=== PATIENT | female | born 1940 | race Caucasian/White ===

== ENCOUNTER 2021-03-17 13:24 | Emergency (ER) | payer OTHER ==
[~2021-03-17] VITALS: Ht 157.5 cm; Wt 47.6 kg
[2021-03-17 13:57] LABS: URINE BILIRUBIN NEGATIVE (Negative); URINE BLOOD NEGATIVE (Negative); URINE CLARITY CLEAR; URINE COLOR YELLOW; URINE GLUCOSE-RANDOM* NEGATIVE (Negative); URINE KETONES NEGATIVE (Negative); URINE NITRITE-REFLEX NEGATIVE (Negative); URINE PROTEIN (DIPSTICK) NEGATIVE (Negative); URINE UROBILINOGEN 0.2 E.U./dl (0.2-1.0)
[2021-03-17 13:59] LABS: URINE LEUKOCYTES-REFLEX 1+ (Negative)
[2021-03-17 14:11] LABS: ABSOLUTE NEUTROPHILS 3.6 thou/uL (1.4-8.2); BASOPHILS 0.5 % (0.0-2.0); EOSINOPHILS 1.7 % (0.0-3.0); HEMATOCRIT 39.4 % (37.0-47.0); LYMPHOCYTES 24.3 % (24.0-44.0); MCH 31.8 pg (26.0-34.0); MCHC 32.9 g/dL (28.0-37.0); MCV 96.4 fL (80.0-100.0); MONOCYTES 11.1 % (1.0-8.0); PLATELET COUNT 202 thou/uL (150-400); POLYS 62.4 % (36.0-66.0); RBC 4.09 mil/uL (4.20-5.00); RDW 12.9 % (10.5-14.5); WBC 5.8 thou/uL (4.0-11.0)
[2021-03-17 14:11] LABS: BACTERIA-REFLEX 1-9 Few /HPF (None Seen); CASTS None Seen /LPF (None Seen); CRYSTALS None Seen /LPF (None Seen); SQUAMOUS 4-10 Moderate /LPF (0-3); URINE RBC 1-2 Rare /HPF (NONE SEEN)
[2021-03-17 14:18] LABS: CREATININE 1.2 mg/dL (0.6-1.0); POTASSIUM 4.3 mmol/L (3.5-5.1)
[2021-03-17 14:25] LABS: ALBUMIN 3.7 g/dL (3.4-5.0); TOTAL BILIRUBIN 0.4 mg/dL (0.2-1.0); TOTAL PROTEIN 6.6 g/dL (6.4-8.2)
[2021-03-17 15:09] VITALS: BP 177/83
--- NOTE | 2021-03-17 15:10 | EKG ---
[place] [address] [employer] [place] [address] ELECTROCARDIOGRAM REPORT Name: HENRYJOSE G YENNI Room #: REG [facility]#: [id number] Admission: 03/17/21 Attend Phys: Discharge: Date of : 44 Report #: [id number] [facility] ED Test Date: 2021-03-17 Test Time: 13:42:06 Pat Name: JOSE G FIGUEROA Department: Room: Gender: F Asset Availability Leader: : 1940 Requested By: Eduardo Marie Order Number: [id number] MD: Chico Alarcon Measurements Intervals [place] Rate: 70 P: 70 NH: 193 QRS: -9 QRSD: 97 T: 79 QT: 379 QTc: 409 Interpretive Statements Sinus rhythm Ventricular bigeminy Left atrial enlargement Anterior infarct, old No previous ECG available for comparison Electronically Signed On 03-17-2021 15:10:10 CDT by Chico Alarcon [email or web address] <ELECTRONICALLY SIGNED> By: Chico Alarcon MD, [facility] 03/17/21 1510 1342 1342 Chico Alarcon MD, FACC /EPI
[2021-03-17] MEDS ORDERED: LIPITOR10 MG PO (15:48)
[2021-03-17] MEDS ORDERED: ACYCLOVIR5 GM TOP (15:48)
[2021-03-17] MEDS ORDERED: COREG6.25 MG PO (15:49)
[2021-03-17] MEDS ORDERED: LEXAPRO20 MG PO (15:49)
[2021-03-17] MEDS ORDERED: FAMOTIDINE 40 M40 M1 PO (15:50)
[2021-03-17] MEDS ORDERED: TRAZODONE HCL50 MG PO (15:51)
[2021-03-17] MEDS ORDERED: TRETINOIN TOP (15:54)
[2021-03-17] MEDS ORDERED: DESVENLAFAXINE25 MG PO (15:55)
== END 2021-03-17 15:09 ==
LOC: ER 13:24
PROVIDERS: Emergency Medicine
DX: R45.851 Suicidal ideations (principal); Z20.822 Contact with and (suspected) exposure to COVID-19; N39.0 Urinary tract infection, site not specified; F41.9 Anxiety disorder, unspecified; F32.9 Major depressive disorder, single episode, unspecified; Z79.1 Long term (current) use of non-steroidal anti-inflammatories (NSAID); Z79.899 Other long term (current) drug therapy; Z88.2 Allergy status to sulfonamides

== ENCOUNTER 2021-03-17 15:24 | Inpatient (IN) | payer OTHER ==
[~2021-03-17] VITALS: Ht 157.5 cm; Wt 46.7 kg
[2021-03-17] MEDS ORDERED: ACYCLOVIR5 GM TOP (15:48)
[2021-03-17] MEDS ORDERED: LIPITOR10 MG PO (15:48)
[2021-03-17] MEDS ORDERED: LEXAPRO20 MG PO (15:49)
[2021-03-17] MEDS ORDERED: COREG6.25 MG PO (15:49)
[2021-03-17] MEDS ORDERED: FAMOTIDINE 40 M40 M1 PO (15:50)
[2021-03-17] MEDS ORDERED: TRAZODONE HCL50 MG PO (15:51)
[2021-03-17] MEDS ORDERED: TRETINOIN TOP (15:54)
[2021-03-17] MEDS ORDERED: DESVENLAFAXINE25 MG PO (15:55)
[2021-03-17 17:15] LABS: CHOLESTEROL 173 mg/dL (<200); HDL CHOLESTEROL 82 mg/dL (>40); LDL CHOLESTEROL 73 mg/dL (<100); TC:HDL 2.1 Ratio (Not establshd); TRIGLYCERIDE 92 mg/dL (<150); VLDL 18 mg/dL (<40)
[2021-03-17 17:17] LABS: SERUM ASSESSMENT Clear
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
[2021-03-17 18:35] LABS: FOLIC ACID 39.4 ng/mL (8.6-58.9)
[2021-03-17 20:07] VITALS: BP 132/62
[2021-03-17 20:08] VITALS: BP 132/62
--- NOTE | 2021-03-17 22:58 | NUR ---
UPON ARIVAL TO THE UNIT PT IS NOT HAPPY. STATES THAT SHE HAS BEEN ON THE FLOOR SINCE 1500 AND HAS NOT TALKED TO ANYONE OTHER THAN TO BE SHOWN TO HER ROOM. PATIENT STATES THAT SHE HAS NEVER BEEN IN A FACILITY LIKE THIS IS HERE FOR DEPRESSION AND ANXIETY ONLY. SHE WAS INFORMED BY HER OUTPATIENT THERAPIST THAT SHE WOULD BE SEEN AND ASSESSED BY DR SAAMYOA AFTER BEING ADMITTED. STATES THAT IS THE REASON WHY SHE CAME TODAY OPPOSED TO LAST WEDNESDAY. SHE STATES THAT INITIALLY SHE WAS TALKING ABOUT COMING LAST WEDNESDAY BUT THE DECISION WAS MADE BETWEEN HER PRIMARY AND SUPPOSEDLY DR SAMAYOA TO WAIT UNTIL TODAY. PATIENT STATES THAT SHE DOES NOT WANT TO HURT HERSELF BUT HAS THOUGHT ABOUT SUICIDE OVER THE PAST FEW YEARS DUE TO CLOSE LOSSES IN HER LIFE. SAYS THAT SHE ADMITTED THAT SHE WANTED TO GO TO SLEEP AND NOT WAKE UP. SHE DOES NOT FEEL THAT THIS ENVIRONMENT IS WHAT SHE NEEDS. SHE BELIEVED THAT SHE WAS COMING FOR COUNSELING AND SOME MEDICATION CHANGES. SHE DENIES HAVING ANY HX OF PSYCHOSIS. PATIENT IS AA0X4. SHE IS CALM COOPERATIVE AND COMPLIANT. SHE FOLLOWS ALL COMMANDS. IS DRESSED APPROPRIATE AND MAKE GOOD EYE CONTACT. SPOKE WITH HER AND HER TO EXPLAIN SOME OF THE UNIT POLICIES FOR SAFETY. WILL CONTINUE TO MONITOR FOR CHANGES IN PATIENT STATUS.
[2021-03-18 10:08] VITALS: BP 140/95
[2021-03-18 10:25] VITALS: BP 140/95
--- NOTE | 2021-03-18 12:05 | NUR ---
Gama WHITE DEFERRED AT THIS TIME AFTER DISCUSSION W/NURSING STAFF. PT IS UP AD BELLA AROUND THE [facility] UNIT AND OBSERVED FROM A DISTANCES AMBULATING W/A STEADY RECIPROCAL GAIT. PT AGREES SHE IS MOBILIZING AT BASELINE AND THUS DOES NOT NECESSITATE SKILLED THERAPY SERVICES IN THE ACUTE CARE SETTING. REQUEST NEW ORDERS IF PT DEMONSTRATES A SUDDEN CHANGE IN MOBILITY.
--- NOTE | 2021-03-18 12:30 | NUR ---
1230 RESUMMED CARE FROM OVERNIGHT SHIFT THIS AM, PATIENT ALERT ORIENTED TIMES 4. PATIENTS AFFECT FLAT SHE FEELS SHE SHOULD NOT BE HERE; PATIENT DENIES SI/HI/AH/VH AT PRESENT. PATIENT STATES HAS SOME DEPRESSION RATES IT AT A 6 NO ANXIETY. PATIENT STATES SHE LOST HER SON LAST YEAR AND IS SICK AND THIS IS OVERWHELMING FOR HER. PATIENTS ABDOMEN SOFT BOWEL SOUNDS PRESENT PATIENTS LUNGS CLEAR. PATIENT CALM QUIET WILL CONINUE TO MONITOR PATIENT FOR SAFETY AND BEHAVIORS.
[2021-03-18 20:12] VITALS: BP 142/64
--- NOTE | 2021-03-19 03:50 | NUR ---
PATIENT RESTING IN HER ROOM ON THE PHONE AT SHIFT CHANGE. PATIENT IS AAOX4 AND FOLLOWS ALL COMMANDS. DEIES PAIN AT THIS TIME. PATIENT IS TEARFUL SHE DOES NOT HAVE PEERS THAT SHE IS ABLE TO RELATE TO. STATES THAT SHE WOULD LIKE TO BE IN A PLACE WHERE THERE IS MORE THERAPY AND PEERS THAT ARE ABLE TO COMMUNICATE. STATES THAT SHE HAS NOT NOTICED ANY DIFFERENCE IN HER MOOD AFTER THE INITIAL DOSES OF SEROQUEL TODAY. PATIENT VSS. WILL CONTINUE TO MONITOR FO RCHANGES IN STATUS.
[2021-03-19 08:56] VITALS: BP 145/59
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
--- NOTE | 2021-03-19 13:53 | NUR ---
03-18-2021--Patient was seen with Dr. Whiting to gather information for psychosocial assessment (Patient seen for approximately 45 minutes.) Patient's was called to set up family meeting for 1:00 PM on 03-19-2021. He had questions and concerns from his conversation with his and wanted me to talk to her and calm her concerns (ie "She doesn't belong here and the meds aren't working and there's not enough to keep her busy) and then call him back. 03-18-2021--(4:00 PM) Patient seen--Patient continues to appear distraught and disheveled. She displayed a flat affect and appeared depressed and anxious and was picking at her hands or whatever was in her hands (paper. kleenex, etc.) She expressed her concerns about not beng able to see Dr. Chandra and relayed that someone had told her to tell them at intake that "I just want to go to sleep". This was construed as a suicidal ideation and she was placed in-patient. She stated she thought she would see Dr. Prateek al and I explained why this was not how it was perceived. Talked to resident about the new med and how it takes a little while to get into her system. Also that being here probably won't get her to see Dr. Prateek al and why it is a goor idea to stick with her current psychiatrist and therapist. She stated her understanding. I gave her my phone almaz to call norma if she needed to talk. 03-18-2021--4:50 PM--Call to Pollo (who goes by Quirino) ([phone]) and explained my conversation with his . I attempted to calm his anxiety about his wanting to come home and explained the new meds that were started and why she needed to stay here at least overnight. I also encouraged the to implement some self-care so he is ready for her return to the home and the support she will need. He stated his understanding. 03-19-2021--(7:45 AM)--I told patient I would come in early and see her. I met her in the henley coming back to her room from breakfast. She appeared more relaxed an composed and less anxious. Her facial expression was more relaxed and she smiled. She did state again ignacio she wanted to leave today. We discussed waiting to talk to the doctor as he can't change or increase any meds if she is leaving. She was agreeable. I suggested she spend as much time as possible out of her room today and socializing with staff, and peers and participating in group. (She did follow through with this as I observed her out of her room and in the day room.) 03-19-2021--(9:45AM)--team meeting--MD wants to keep her at least overnight and we will discuss this at the family meeting with her son and . 03-19-2021--(1:00 PM)--Family meeting held--present: Michelle Hylton (internal consultant with the doctor); Rosina and myself in the room. Dr. Whiting called her (with above number) and Oskar (son--[phone]). Patient staying one more night to allow the doctor to increase her seroquel once more was discussed. Everyone was in agreement. IOP program at [facility] () was discussed. A two week committment for participation in this program was requested by the doctor and patient, son and agreed to this. (Also agreed with making environment safe and no alcoholic beverages when she comes home.) and patient also agreeable to this. As well, the patient agreed to staying overnight one more night with DC around 11:00 AM on 03-20-21. ( stated he would call in the AM to make sure things were still the same.) will pull up to [address] and call the unit so patient can be brought down. RN will accompany to explain DC details to and payient. Call ended/meeting over. ( requested a phone call from me after talking to IOP program with details. 03-19-2021--1:45 PM--Call to IOP program at [facility] () to get details for referral and information needed. Message left to call this worker back at [phone].
--- NOTE | 2021-03-19 14:33 | NUR ---
PATIENT HAS BEEN UP, AND OUT ON THE UNIT, AMBULATE WITH STEADY GAIT. PATIENT TOOK ALL MEDICATION WHOLE WITHOUT DIFFICULTY, SHE IS EATING MEALS, AND DRINKING FLUID FAIRLY WELL. PATIENT DENIES SUICIDAL/HOMICIDAL IDEATION, SHE RATES DEPRESSION 6/10, ANXIETY 8/10. SHE PARTICIPATES IN GROUP THERAPY. TYLENOL 650MG GIVEN FOR HEADACHE AT 1112HRS, SHE RATES HEADACHE 3/10, WHEN REASSESSED, PAIN DECREASED TO 2/10. PATIENT IS VERY ANXIOUS TO GET OUT OF THIS PLACE. AFFECT IS FLAT, MOOD IS DEPRESSED, NO SIGN OF ACUTE DISTRESS NOTED AT THIS TIME, WILL MONITOR FOR SAFETY.
--- NOTE | 2021-03-19 15:49 | NUR ---
03-19-2021--2:15 PM--Went to patient's room and discussed coping skillls with her to find out what she was going to do when she gets home and starts to feel depressed/bored/anxious. Discussed deep breathing and meditation (which she has iused im the past and has an iam for the meditation on her phone.) She also discussed hobbies she enjoyed in the past and those she still likes to do. Advised her to make a list of activities or get a box and put things she likes to do in it (ex. tonto apache the word books, jigsaw puzzles, etc.) Reminded her that the time to start deep breathing is when she first feels the pangs of anxiety, not in the middle of a panic attack. Patient was responsive to the suggestions and came up with many other activities. 03-19-2021--3:00 PM--Call to [facility] IOP program ([phone]) and talked with Светлана. Ask for requirements for admission to the program. She stated she needed to talk to the patient to set up an appointment. 03-19-2021--3:10 PM--Worker got patient from her room and brought her to my office to call Светлана for patient information. Светлана set up an appointment for patient for Wednesday at 10:30 AM for approx. 1/2 hour. Светлана wanted the insurance information for the patient including policy numbers. Светлана provided me with the fax number ([phone]) for the unit. We attempted to call her with the information. He was not in so she left him a message with the information. (Several attempts were made to fax insurance information. Wouldn't go through. Call made to Светлана and information was given verbally.
[2021-03-19 19:59] VITALS: BP 152/69
[2021-03-19 20:00] VITALS: BP 152/69
--- NOTE | 2021-03-20 05:01 | NUR ---
PATIENT STAYED MOST OF EVENING IN HER ROOM BUT DID COME OUT TO DINING ROOM FOR SHORT PERIODS OF TIME. SHE HAS BEEN CALM AND COOPERATIVE. SHE WAS GIVEN TYLENOL 650MG PO AROUND 2029 FOR A HEADACHE OF 5/10. THIS DID RELIEVE THE HEADACHE. SHE DENIES SI/HI/AVH. SHE WALKS WITH A STEADY GAIT AND TOOK HER HS MEDS WHOLE WITH WATER. SHE IS TO DC TO HOME 03/20 AT 11AM. PATIENT HAS SLEPT THRU THE NIGHT. ROUTINE ROUNDS TO ASSESS SAFETY AND STATUS OF PATIENT.
[2021-03-20 09:54] VITALS: BP 156/88
[2021-03-20 10:05] VITALS: BP 156/88
[2021-03-20] MEDS ORDERED: TRAZODONE HCL100 MG PO (10:31)
[2021-03-20] MEDS ORDERED: LEXAPRO 10 MG T10 MG PO (10:31)
[2021-03-20] MEDS ORDERED: SEROQUEL 50 MG50 MG PO (10:32)
[2021-03-20] MEDS ORDERED: PRENATAL PO (10:33)
[2021-03-20 10:43] VITALS: BP 156/88
--- NOTE | 2021-03-20 13:29 | NUR ---
RESUMMED CARE FROM OVERNIGHT SHIFT THIS AM, PATIENT ALERT ORIENTED TIMES 4. PATIENT ATE BREAKFAST TOOK MEDICATION WITHOUT INCIDENCE. PATIENT CALM COOPERATIVE. PATIENTS ABDOMEN SOFT BOWEL SOUNDS PRESENT PATIENTS LUNGS CLEAR. PATIENT DENIES SI/HI/AH/VH AT PRESENT AT PRESENT, PATIENT IS DISCHARGING TO HOME TODAY. I TOOK PATIENT DOWN WITH DISCHARGE INSTRUCTIONS AND BELONGINGS.
--- NOTE | 2021-03-23 06:33 | D ---
[facility] [place] [address] DISCHARGE SUMMARY Name: JOSE G FIGUEROA Room #: 517-A [facility] M.R.#: [id number] Admission: 03/17/21 Attend Phys: Jayden Middleton DO Discharge: 03/20/21 Date of : 44 Report #: [id number] THIS REPORT FOR: cc: Katherine Mayers MD, Elizabeth A. MD Kerstein, Andrew H. DO ~ DATE OF SERVICE: 03/20/2021 PSYCHIATRIC DISCHARGE SUMMARY ATTENDING PSYCHIATRIST: Jayden Middleton DO [employer] TOP HELPER: Milton Thomson M.D. DISCHARGE DIAGNOSES: Major depressive disorder, single episode, severe degree; recurrent episode, severe degree; unspecified anxiety; history of alcohol use disorder; partner relational disorder. Medical comorbidities include acute on chronic renal failure, hypertension, hyperlipidemia. The patient is discharging to her home where she lives with her Mitchel, social science professor has set the patient up with [facility] IOP program; intake is 10:30 tomorrow, 03/21/2021. The patient is encouraged to see her primary care physician in 1 month. No alcohol, no smoking, no recreational drugs. DISCHARGE MEDICATIONS: The patient is on Seroquel 50 mg oral 3 times a day at 0900, 1500, 2100 hours. Trazodone 100 mg oral at bedtime, Rx given #25 for trazodone p.r.n. #90 for the Seroquel. She is on a vitamin. She should continue on Lexapro 10 mg oral daily at this time, although she had tapered down from 20 to 10 mg per her previous psychiatrist. Also general medical meds, atorvastatin 10 mg oral daily, carvedilol 6.25 mg oral twice daily for hypertension, and famotidine 40 mg oral daily for GERD. DIET: The patient is on a regular diet. ACTIVITY LEVEL: As tolerated. LABORATORY DATA: Hematology was normal. Chemistries for this patient: BUN 20, creatinine 1.2, sodium 137, potassium 4.3, chloride 102, bicarbonate 28, anion gap 7, estimated GFR 42, glucose 133. A1c 6.0, calcium 9.0, total bilirubin 0.4, AST 15, ALT 23, alkaline phosphatase 65, total protein 6.6, albumin 3.7, triglycerides 92, total cholesterol 173, LDL 73, HDL 82. B12 of 357, folate 39.4. TSH 1.068. Urinalysis this admission had a few abnormalities, glucosuria, leukocyte esterase and bacteria. Culture was done and it showed no growth. REASON FOR ADMISSION: Back on the 03/17/2021, 80-year-old female referred by her psychotherapist, who is a marriage and family therapist, for concerns of [address] [address] DISCHARGE SUMMARY Name: JOSE G FIGUEROA Room #: 517-[facility] IN M..#: [id number] Admission: 03/17/21 Attend Phys: Jayden Middleton DO Discharge: 03/20/21 Date of : 44 Report #: [id number] suicidal ideation, suicidal planning. HOSPITAL COURSE: The patient admitted to Geriatric Psychiatry Unit voluntarily. She had significant anxiety. She had a recent visit by the family members of son, which triggered her. She is having trouble in terms of marital relations with her and started on scheduled Seroquel. The patient had some improvement. The patient wanted higher level groups and therapy. Discussed PHP with her, the patient was open to and we were pleased we were able to get her into that starting the end of this week. PHYSICAL EXAMINATION: VITAL SIGNS: Temperature 35.1, pulse 105, respirations 18, BP 156/88, O2 sat 100%. MUSCULOSKELETAL: Normal gait and station, well dressed. MENTAL STATUS EXAMINATION: This is a well-built, well-developed, thin female, BMI 18.8. Attention intact. Concentration was intact. Speech normal in rate. Thought process: Linear and goal directed. Thought content: Focused on discharge. Denied suicidal or homicidal ideation, auditory, visual, or tactile hallucinations. Mood was constricted, congruent. Insight and judgment fair. Fund of knowledge: Above average. Prognosis for this patient is fair to good. She engages in the PHP program and work through psychotherapeutic process. Also, her marital relations will need improvement. The patient was counseled on same. <ELECTRONICALLY SIGNED> By: Jayden Middleton DO 03/23/21 [id number] Jayden Middleton DO /nt
== END 2021-03-20 11:00 | disposition home or self-care (01) | DRG 885 ==
LOC: SBH 15:24
PROVIDERS: ADMIT Psychiatry & Neurology Psychiatry; ATTEND Psychiatry & Neurology Psychiatry
DX: F32.2 Major depressive disorder, single episode, severe without psychotic features (principal); N17.9 Acute kidney failure, unspecified; N18.9 Chronic kidney disease, unspecified; R45.851 Suicidal ideations; E44.0 Moderate protein-calorie malnutrition; Z68.1 Body mass index [BMI] 19.9 or less, adult; F41.9 Anxiety disorder, unspecified; E78.5 Hyperlipidemia, unspecified; I12.9 Hypertensive chronic kidney disease with stage 1 through stage 4 chronic kidney disease, or unspecified chronic kidney disease; E86.0 Dehydration; Z79.899 Other long term (current) drug therapy; Z88.1 Allergy status to other antibiotic agents; Z88.2 Allergy status to sulfonamides
CPT/HCPCS: 10880